=== PATIENT | female | born 1930 | race Caucasian/White ===

== ENCOUNTER 2017-10-05 12:53 | Emergency (ER) | payer MEDICARE ==
[2017-10-05 16:37] LABS: #Eosinphils 0.1 thou/uL (0.0-0.7); #Lymphocytes 2.7 thou/uL (1.20-3.40); #Monocytes 0.7 thou/uL (0.11-0.59); #Neutrophils 5.6 thou/uL (1.40-6.50); %Basophils 0.3 % (0.0-1.0); %Eosinophils 0.7 % (0.0-10.0); %Lymphocytes 29.9 % (21.0-51.0); %Monocytes 7.3 % (0.0-10.0); %Neutrophils 61.7 % (42.0-75.0); Hemoglobin 14.9 g/dL (12.0-16.0); Mean Corpuscular HGB CONC 33.3 g/dL (32.0-36.0); Mean Corpuscular Volume 99.1 fl (81.0-99.0); Mean Platelet Volume 7.2 fL (7.4-10.4); Platelet Count 278 thou/uL (130-400); RBC Distribution Width 12.9 % (11.5-14.5); Red Blood Cell (RBC) Count 4.52 mill/uL (4.20-5.40); White Blood Cell (WBC) Count 9.1 thou/uL (4.8-10.8)
[2017-10-05 17:03] LABS: ALT (SGPT) 13 U/L (8-55); AST (SGOT) 32 U/L (5-34); Albumin 3.9 g/dL (3.4-4.8); Alkaline Phosphatase 135 U/L (40-150); Anion Gap 19 mmol/L (10-20); BUN (Urea Nitrogen) 13 mg/dL (9.8-20.1); Bilirubin, Total 0.5 mg/dL (0.2-1.2); Calc. Creatinine Clearance 0 mL/min (70-130); Calcium 9.9 mg/dL (7.8-10.44); Carbon Dioxide 19 mmol/L (23-31); Chloride 108 mmol/L (98-107); Estimated GFR-MDRD 65; Globulin 3.9 g/dL (2.4-3.5); Glucose 112 mg/dL (83-110); Potassium 3.9 mmol/L (3.5-5.1); Protein, Total 7.8 g/dL (6.0-8.3); Sodium 142 mmol/L (136-145)
[2017-10-05 18:15] LABS: CKMB 0.7 ng/mL (0-6.6); Troponin I Less than 0.010 ng/mL (< 0.028)
[2017-10-05] MEDS ORDERED: Labetalol HCl 100 MG/20 ML VIAL ONE (19:38)
--- NOTE | 2017-10-05 20:15 | CT ---
NONCONTRAST HEAD CT: HISTORY: Decreased appetite. Dehydration. Weakness. COMPARISON: 08/26/2015 TECHNIQUE: A noncontrast head CT is performed from the skull base to the skull vertex. FINDINGS: No parenchymal hemorrhage. No extraaxial hematoma. No midline shift. The basilar cisterns are hawthorne nt. There is stable malacic change involving the medial left frontal lobe. There is stable configur ation of the ventricular system, which is slightly greater than expected for the overall degree of at rophy. With the exception of the medial left frontal lobe, cortical gao white matter differentiation is pre served. White matter hypodensity due to chronic small vessel ischemic changes are identified. Intact calvarium. Adequate aeration of the sinuses and mastoid air cells. Atherosclerosis of the ca vernous carotid arteries. IMPRESSION: 1. No acute intracranial process. 2. Chronic small vessel ischemic change of the white matter. 3. Malacic change in the medial left frontal lobe. POS: PPP
[2017-10-05 22:26] LABS: Bilirubin Negative (Negative); Blood, Urine Large (Negative); Clarity TURBID (Clear); Glucose, Urine (Dipstick) Negative (Negative); Leukocyte Large (Negative); Nitrite Negative (Negative); Protein, Urine (Dipstick) Trace mg/dL (Neg-Trace); Specific Gravity, Urine 1.009 (1.002-1.036); Urobilinogen 0.2 mg/dL (0.2-1.0)
[2017-10-05 22:28] LABS: Bacteria/HPF 4+ HPF (None Seen); Hyaline Casts/LPF 0-3 HYALINE CAST LPF (0-3 Hyaline)
[2017-10-05 22:29] LABS: Yeast-AUWi Flag 13846.7 (0-25.0)
[2017-10-05 22:37] LABS: RBC/HPF 21-50 HPF (0-3)
[2017-10-05 22:38] LABS: Crystals/HPF 1+ CA OXALATE HPF (Negative)
[2017-10-05] MEDS ORDERED: Amlodipine 5 MG TAB ONE ×2 (23:29→23:32)
[2017-10-05] MEDS ORDERED: Lisinopril 10 MG TAB ONE (23:29)
== END 2017-10-06 00:26 | disposition home or self-care (01) ==
LOC: ERS 12:53
DX: N39.0 Urinary tract infection, site not specified (principal); E86.0 Dehydration; I10 Essential (primary) hypertension; F41.9 Anxiety disorder, unspecified; F32.9 Major depressive disorder, single episode, unspecified
CPT/HCPCS: 36415; 51702; 70450; 80053; 81003; 81015; 82553; 83880; 84484; 85025; 87086; 93005; 94760; 96361; 96374; 96375; J0696

== ENCOUNTER 2017-10-29 14:43 | Inpatient (IN) | payer MEDICARE ==
[2017-10-29 15:41] LABS: #Basophils 0.1 thou/uL (0.0-0.2); #Eosinphils 0.1 thou/uL (0.0-0.7); #Lymphocytes 1.9 thou/uL (1.20-3.40); #Monocytes 1.2 thou/uL (0.11-0.59); #Neutrophils 16.6 thou/uL (1.40-6.50); %Basophils 0.3 % (0.0-1.0); %Eosinophils 0.3 % (0.0-10.0); %Lymphocytes 9.5 % (21.0-51.0); %Monocytes 6.3 % (0.0-10.0); %Neutrophils 83.7 % (42.0-75.0); Hemoglobin 14.5 g/dL (12.0-16.0); Mean Corpuscular HGB CONC 32.6 g/dL (32.0-36.0); Mean Corpuscular Hemoglobin 33.2 pg (27.0-31.0); Mean Platelet Volume 8.9 fL (7.4-10.4); Platelet Count 362 thou/uL (130-400); RBC Distribution Width 13.7 % (11.5-14.5); Red Blood Cell (RBC) Count 4.38 mill/uL (4.20-5.40); White Blood Cell (WBC) Count 19.8 thou/uL (4.8-10.8)
--- NOTE | 2017-10-29 15:47 | RAD ---
RADIOGRAPH CHEST 1 VIEW: HISTORY: 87-year-old female with dysphagia. FINDINGS: The thoracic aorta is tortuous and ectatic. There is no evidence of air space density, pneumothorax, or pulmonary edema. The lateral costophrenic angles are sharp. IMPRESSION: 1) No acute pulmonary findings. 2) Ectasia of thoracic aorta. yoly POS: JOSE
[2017-10-29 15:49] LABS: ALT (SGPT) 18 U/L (8-55); AST (SGOT) 31 U/L (5-34); Albumin 3.8 g/dL (3.4-4.8); Alkaline Phosphatase 118 U/L (40-150); Anion Gap 17 mmol/L (10-20); BUN (Urea Nitrogen) 60 mg/dL (9.8-20.1); Bilirubin, Total 0.5 mg/dL (0.2-1.2); Calc. Creatinine Clearance 0 mL/min (70-130); Calcium 9.9 mg/dL (7.8-10.44); Carbon Dioxide 24 mmol/L (23-31); Chloride 118 mmol/L (98-107); Estimated GFR-MDRD 39; Globulin 3.1 g/dL (2.4-3.5); Glucose 159 mg/dL (83-110); Potassium 3.5 mmol/L (3.5-5.1); Protein, Total 6.9 g/dL (6.0-8.3); Sodium 155 mmol/L (136-145)
[2017-10-29 15:53] LABS: CKMB 2.6 ng/mL (0-6.6); Troponin I 0.066 ng/mL (< 0.028)
[2017-10-29 15:56] LABS: Bilirubin Negative (Negative); Blood, Urine Negative (Negative); Clarity CLOUDY (Clear); Glucose, Urine (Dipstick) Negative (Negative); Leukocyte Negative (Negative); Nitrite Negative (Negative); Protein, Urine (Dipstick) Trace mg/dL (Neg-Trace); Specific Gravity, Urine 1.021 (1.002-1.036); Urobilinogen 0.2 mg/dL (0.2-1.0); pH, Urine 5.5 (5.0-9.0)
[2017-10-29] MEDS ORDERED: Dextrose 5 % And 0.9 % NaCl 1,000 ML IV SCH (19:15)
[2017-10-29] MEDS ORDERED: cefTRIAXone\\ROCEPHIN 2 GM in Sodium Chloride 0.9% 100 ML IVPB SCH (19:15)
[2017-10-29 20:16] LABS: CKMB 2.1 ng/mL (0-6.6); Troponin I 0.055 ng/mL (< 0.028)
[2017-10-29] MEDS: Dextrose 5 %-0.45 % NaCl 1,000 ML IV SCH (20:17)
[2017-10-29] MEDS: Diltiazem HCl 125 MG, Admixture Fee 1 EACH in Sodium Chloride 0.9% 100 ML IVPB SCH (20:18)
[2017-10-29 22:56] LABS: CKMB 1.6 ng/mL (0-6.6); Troponin I 0.054 ng/mL (< 0.028)
[2017-10-30 05:25] LABS: #Eosinphils 0.1 thou/uL (0.0-0.7); #Lymphocytes 1.7 thou/uL (1.20-3.40); #Monocytes 0.6 thou/uL (0.11-0.59); #Neutrophils 10.4 thou/uL (1.40-6.50); %Basophils 0.3 % (0.0-1.0); %Eosinophils 0.4 % (0.0-10.0); %Lymphocytes 13.4 % (21.0-51.0); %Monocytes 4.9 % (0.0-10.0); Hemoglobin 12.7 g/dL (12.0-16.0); Mean Corpuscular Hemoglobin 32.8 pg (27.0-31.0); Mean Platelet Volume 8.7 fL (7.4-10.4); Platelet Count 228 thou/uL (130-400); RBC Distribution Width 13.7 % (11.5-14.5); Red Blood Cell (RBC) Count 3.86 mill/uL (4.20-5.40); White Blood Cell (WBC) Count 12.9 thou/uL (4.8-10.8)
[2017-10-30 05:52] LABS: Anion Gap 14 mmol/L (10-20); BUN (Urea Nitrogen) 46 mg/dL (9.8-20.1); Calc. Creatinine Clearance 39 mL/min (70-130); Calcium 8.8 mg/dL (7.8-10.44); Carbon Dioxide 24 mmol/L (23-31); Chloride 121 mmol/L (98-107); Estimated GFR-MDRD 66; Glucose 122 mg/dL (83-110); Sodium 156 mmol/L (136-145)
[2017-10-30 05:57] LABS: Potassium 2.7 mmol/L (3.5-5.1)
[2017-10-30] MEDS: Dextrose 5 %-0.45 % NaCl 1,000 ML IV SCH (06:11)
[2017-10-30] MEDS ORDERED: cefTRIAXone\\ROCEPHIN 2 GM in Sodium Chloride 0.9% 100 ML IVPB SCH (09:00)
[2017-10-30] MEDS: Potassium Chloride 20 MEQ in Premix Bag 1 BAG IVPB SCH ×2 (10:14→12:27)
[2017-10-30] MEDS: Dextrose 5% in Water 1,000 ML IV SCH (14:16)
[2017-10-30] MEDS: hydrALAZINE 20 MG/ML VIAL SLOW IVP PRN (18:54)
[2017-10-30] MEDS ORDERED: Potassium Chloride 20 MEQ in Sodium Chloride 0.9% 250 ML 250 ML IVPB SCH (19:00)
--- NOTE | 2017-10-31 01:02 | HP ---
DATE OF ADMISSION: 10/29/2017 CHIEF COMPLAINT: The patient is not eating well, losing weight, and has swallowing problems and for possible PEG tube placement. HISTORY OF PRESENT ILLNESS: Ms. Ortega is an 87-year-old female with past medical histor y of dementia, hypertension, anxiety disorder, has not been eating for the last few weeks to few candis hs. The patient has been losing weight steadily. She drinks Boost sometimes, but not enough. The p atient was seen in the office and they had discussed various options with the guardian of the patient . She indicated that she wants her to eat, if she cannot eat, she wants her to continue with some ki nd of feeding, so that is the reason she brought the patient here for possible PEG tube placement. I n the ER, the patient was evaluated and found to be very lethargic and very tachycardic. The patient was found to be in atrial fibrillation with rapid ventricular rate, new onset. She received Cardize m 1 dose, also started on IV fluids because of her severe dehydration. She was found to be in acute kidney injury with elevated BUN and creatinine. She received a bolus of 1 liter and the patient was also given Cardizem as mentioned before. The patient is being admitted for further evaluation and kurt headley. PAST MEDICAL HISTORY: 1. Dementia. 2. Hypertension. 3. Hyperlipidemia. 4. Unstable gait. 5. Anxiety disorder. PAST SURGICAL HISTORY: Nothing significant. CURRENT MEDICATIONS: Her home medications include lisinopril 20 mg daily, Xanax 0.25 at bedtime p.r. n., Norvasc 5 mg daily, clonidine p.r.n., multivitamin daily, vitamin D daily, Zoloft 150 daily, clon idine 0.1 mg b.i.d., Seroquel 25 mg b.i.d., Tylenol p.r.n., tramadol p.r.n. ALLERGIES: NKDA. FAMILY HISTORY: Nothing of interest. SOCIAL HISTORY: She lives at home, has a 24-hour caregiver. No history of smoking. No history of a lcohol use. REVIEW OF SYSTEMS: Cardiovascular: No chest pain. No shortness of breath. Respiratory: No fever or cough. Gastrointestinal: Has anorexia, not eating well, and weight loss. Central Nervous System : No headache. No dizziness. PHYSICAL EXAMINATION: GENERAL: The patient is not very alert, not oriented. VITAL SIGNS: Temperature 98, pulse 101, respirations 20, blood pressure 150/70. HEENT: Head is normocephalic, atraumatic. Pupils are equal and reactive. Nasopharynx is pale and d ry. Hard and soft palate, no lesions. SKIN: Skin turgor decreased. NECK: Supple. No JVD. LUNGS: Breath sounds diminished bilaterally. No rales, no rhonchi. HEART: S1, S2 regular. ABDOMEN: Soft. No distention, no tenderness. No organomegaly. Normal bowel sounds. RECTAL: Deferred. CENTRAL NERVOUS SYSTEM: The patient is lethargic, responds to painful stimuli. No focal neurologica l deficit. LABORATORY DATA: CBC shows WBC 19.8, hemoglobin 14, hematocrit 44, platelets 362. Metabolic panel, sodium 155, potassium 3.5, chloride 118, CO2 of 24, BUN 60, creatinine 1.28, glucose 159. CK-MB is 2 .6. Troponin I is 0.066. Urinalysis showing wbc. IMAGING: EKG shows atrial fibrillation with rapid ventricular rate with heart rate of 126, no acute ST-T changes seen. Chest x-ray, negative. ASSESSMENT: 1. New-onset atrial fibrillation with rapid ventricular rate. 2. Acute kidney injury. 3. Severe hypernatremia. 4. Severe dehydration. 5. Anorexia and weight loss. 6. Rule out urinary tract infection. 7. Severe dementia. 8. Hypertension. PLAN: 1. Vital signs q.4 hours. 2. Activity, as tolerated. 3. Allergies: NKDA. 4. IV fluids, D5 half at 100 mL per hour. 5. Intake and output. 6. We will hold her p.o. medications. 7. Patient is FULL CODE.
[2017-10-31] MEDS: Dextrose 5% in Water 1,000 ML IV SCH ×3 (01:51→21:35)
[2017-10-31 06:11] LABS: #Basophils 0.1 thou/uL (0.0-0.2); #Eosinphils 0.2 thou/uL (0.0-0.7); #Lymphocytes 1.8 thou/uL (1.20-3.40); #Monocytes 0.6 thou/uL (0.11-0.59); #Neutrophils 7.4 thou/uL (1.40-6.50); %Basophils 0.6 % (0.0-1.0); %Eosinophils 1.9 % (0.0-10.0); %Lymphocytes 17.6 % (21.0-51.0); %Monocytes 5.7 % (0.0-10.0); %Neutrophils 74.2 % (42.0-75.0); Hemoglobin 12.7 g/dL (12.0-16.0); Mean Corpuscular HGB CONC 32.7 g/dL (32.0-36.0); Mean Corpuscular Hemoglobin 33.2 pg (27.0-31.0); Mean Platelet Volume 8.8 fL (7.4-10.4); Platelet Count 216 thou/uL (130-400); RBC Distribution Width 13.4 % (11.5-14.5); Red Blood Cell (RBC) Count 3.84 mill/uL (4.20-5.40)
[2017-10-31 06:26] LABS: Anion Gap 10 mmol/L (10-20); BUN (Urea Nitrogen) 18 mg/dL (9.8-20.1); Calc. Creatinine Clearance 49 mL/min (70-130); Calcium 8.7 mg/dL (7.8-10.44); Carbon Dioxide 24 mmol/L (23-31); Chloride 118 mmol/L (98-107); Estimated GFR-MDRD 86; Glucose 116 mg/dL (83-110); Sodium 149 mmol/L (136-145)
[2017-10-31] MEDS: hydrALAZINE 20 MG/ML VIAL SLOW IVP PRN (11:07)
[2017-10-31] MEDS: Potassium Chloride 20 MEQ in Sodium Chloride 0.9% 250 ML 250 ML IVPB SCH ×2 (13:12→15:38)
--- NOTE | 2017-10-31 14:08 | CON ---
DATE OF CONSULTATION: 10/31/2017 REQUESTING PHYSICIAN: Dr. Clark. REASON FOR CONSULTATION: PEG tube placement. HISTORY OF PRESENT ILLNESS: Ms. Ortega is an 87-year-old woman with no apparent history of gastrointestinal illness, but she does have significant dementia, which has been worsening. Her c aregiver and guardian, Aarti, was able to provide history for me. Aarti states that over the past few y ears, the patient has had a progressive decline in mental status, but also more recently progressive decline in oral intake. She has been noted to have oropharyngeal dysphagia with significant choking and gagging during some meals. She has slowly lost a bit of weight as well. Because of this general ized decline, the patient was brought in for consideration of PEG tube placement, which her guardian has thought about for a long time and has finally decided to proceed with if possible. In the ER, th e patient was lethargic and tachycardic and found to be in atrial fibrillation with rapid ventricular rate. Her rates have been brought under control overnight with IV diltiazem. This morning, she rem ains confused, but not complaining of any pain. She was evaluated by speech pathologist earlier toda y and was found to be 80%-100% impaired with her swallowing function. We are consulted for considera tion of PEG tube placement. The patient has not had any abdominal surgeries that we can tell. She i s not on any anticoagulation. REVIEW OF SYSTEMS: Unable to obtain from the patient due to significant dementia. PAST MEDICAL HISTORY: Dementia, hypertension, hyperlipidemia, unsteady gait, anxiety disorder. PAST SURGICAL HISTORY: None. ALLERGIES: No known drug allergies. MEDICATIONS: Lisinopril, Xanax, Norvasc, multivitamin, vitamin D, Zoloft, clonidine, Seroquel, Tylen ol, tramadol. FAMILY HISTORY: Noncontributory. SOCIAL HISTORY: The patient lives at home and has 24-hour caregivers. No history of smoking or alco hol use. PHYSICAL EXAMINATION: VITAL SIGNS: Temperature 98.8, pulse 100, blood pressure 168/74, 98% oxygen saturation on room air. GENERAL: Elderly, frail, demented 87-year-old woman, lying in bed comfortably in no distre ss. SKIN: She is a bit pale, no jaundice, no rashes were palpable. EYES: No scleral icterus. Extraocular movements intact. ENT: Mucous membranes moist, no oral lesions. LYMPH: No submandibular or supraclavicular lymphadenopathy. THYROID: Nontender to palpation. HEART: Regular rate and rhythm. LUNGS: Clear to auscultation bilaterally. ABDOMEN: Flat, nontender to palpation. No surgical scars in left upper quadrant. EXTREMITIES: No peripheral edema. VESSELS: Radial pulses 2+ bilaterally. NEUROLOGICAL: She is unable to follow commands. Cranial nerves appear intact. LABORATORY STUDIES: Hemoglobin 12.7, WBC 10.0, platelets 216,000. Sodium 149, potassium 3.0. BUN 1 8, creatinine 0.65. Urinalysis negative. ASSESSMENT AND PLAN: 1. Oropharyngeal dysphagia. 2. Dementia. It does appear from the speech pathologist report as well as her clinical course that the patient has developed progressive oropharyngeal dysphagia and is at increasing aspiration risk and risk for maln utrition. I agree that PEG placement is a reasonable consideration. This is what the patient's guar ken desires. I see no contraindications to this. The patient has no history of abdominal surgeries . I discussed PEG placement and the risks and potential benefits in detail with the patient's guardi an and she desires for us to proceed. We will plan for PEG placement tomorrow. Please hold any anti coagulation. In the meantime, have her n.p.o. after midnight. Further recommendations following PEG placement.
[2017-10-31] MEDS: Diltiazem HCl 125 MG, Admixture Fee 1 EACH in Sodium Chloride 0.9% 100 ML IVPB SCH (21:39)
--- NOTE | 2017-10-31 22:36 | CON ---
DATE OF CONSULTATION: 10/31/2017 REASON FOR CONSULTATION: Atrial fibrillation. HISTORY OF PRESENT ILLNESS: Ms. Ortega is a very pleasant 87-year-old woman with severe dementia w ith atrial fibrillation. She was brought to the hospital with dehydration, not eating and failure to thrive, hypernatremia. It was noted that she is in atrial fibrillation. The patient is unable to g tatiana any history due to her dementia. PAST MEDICAL HISTORY: She has history of atrial fibrillation after urinary tract infection a couple years ago. She has a history of recurrent urinary tract infections. The patient is going to have a PEG tube placement. PAST MEDICAL HISTORY: 1. Dementia. 2. Hypertension. 3. Hyperlipidemia. PAST SURGICAL HISTORY: None significant. HOME MEDICATION: 1. Lisinopril. 2. Norvasc. 3. Clonidine. 4. Zoloft. ALLERGIES: None known. SOCIAL HISTORY: No alcohol or tobacco. She has a 24-hour caregiver. She has a family member, who s he describes herself as a distant family member who has been instrumental in her care apparently. REVIEW OF SYSTEMS: Not obtainable due to dementia. PHYSICAL EXAMINATION: GENERAL: A pleasant elderly woman. She is alert, but not oriented. VITAL SIGNS: Her blood pressure 150/68, pulse 92 and regular. HEENT: Sclerae nonicteric. Mouth mucous membranes moist. NECK: Supple, no lymphadenopathy. LUNGS: Clear. CARDIAC: Irregularly, irregular. ABDOMEN: Soft, nontender. EXTREMITIES: No clubbing or cyanosis. There is no significant edema. SKIN: Warm and dry. PERTINENT LABORATORY DATA: Hemoglobin is 12.7, potassium is 3.0. Troponin is 0.066. The EKG atrial fibrillation with a rapid rate, previous echocardiogram done in 2014 showed normal lef t ventricular function at that time, ejection fraction 55% to 60%. CONCLUSION: 1. Atrial fibrillation with initially rapid ventricular rate. Now rate controlled on intravenous Ca rdizem. 2. Failure to eat. Plan for PEG tube. She failed a swallowing test that indicates she is high risk for aspiration. PLAN: 1. Continue intravenous Cardizem. 2. We changed Cardizem by the PEG tube when she is able to have placed. 3. Resume antihypertensives when the PEG tube was placed. Also, at this time, would not recommend a nticoagulation. She is going to have a PEG tube at some point, could consider low dose Eliquis 2.5 m g twice a day, although the family member is considering hospice, rate control along may be the best option.
[2017-10-31] MEDS ORDERED: CEFAZOLIN/Water 2 GM/20 ML SYRINGE SLOW IVP SCH (23:45)
[2017-11-01 05:42] LABS: Anion Gap 8 mmol/L (10-20); BUN (Urea Nitrogen) 14 mg/dL (9.8-20.1); Calc. Creatinine Clearance 71 mL/min (70-130); Calcium 8.3 mg/dL (7.8-10.44); Carbon Dioxide 23 mmol/L (23-31); Chloride 113 mmol/L (98-107); Estimated GFR-MDRD Greater than 90; Glucose 94 mg/dL (83-110); Sodium 141 mmol/L (136-145)
[2017-11-01 05:44] LABS: Potassium 2.8 mmol/L (3.5-5.1)
[2017-11-01] MEDS: Dextrose 5% in Water 1,000 ML IV SCH (06:20)
[2017-11-01] MEDS: Potassium Chloride 20 MEQ in Premix Bag 1 BAG IVPB SCH ×2 (07:03→09:47)
[2017-11-01] MEDS ORDERED: CEFAZOLIN/Water 2 GM/20 ML SYRINGE ONE (08:00)
[2017-11-01] MEDS ORDERED: Morphine Sulfate 2 MG/ML SYRINGE SLOW IVP PRN (08:40)
[2017-11-01] MEDS ORDERED: Ondansetron HCl/PF 4 MG/2 ML Vial IVP PRN (08:40)
[2017-11-01] MEDS ORDERED: Promethazine HCl 25 MG/ML VIAL SLOW IVP PRN (08:40)
[2017-11-01] MEDS ORDERED: Promethazine HCl 25 MG/ML VIAL IM PRN (08:40)
--- NOTE | 2017-11-01 09:11 | OP ---
GI ENDOSCOPY NOTE SURGEON: Rob Drew M.D. MOLD YARN SUPERVISOR SURGEON: None. PROCEDURE: Esophagogastroduodenoscopy with percutaneous endoscopic gastrostomy placement. INDICATIONS: 1. Oropharyngeal dysphagia. 2. Dementia. MEDICATIONS: 1. See anesthesia record. 2. Ancef 2 grams IV, has periprocedural antibiotic prophylaxis. FINDINGS: After discussion of the risks, benefits and alternatives of the procedure, informed consen t was obtained and verified. Pre-endoscopic cardiopulmonary examination was satisfactory. Timeout w as performed before sedation was achieved. Sedation was achieved with anesthesia assistance in the e ndoscopy unit. The patient was placed in the supine position. A Pentax adult upper endoscope was pl aced into the oropharynx and passed through the cricopharyngeus under direct visualization. The esop hageal mucosa appeared normal throughout with a normal-appearing Z-line. The endoscope was then adva nced into the stomach. Forward and retroflexed views of the entire gastric mucosa were obtained. Th e gastric mucosa appeared normal. The endoscope was then advanced through the pylorus and into the f irst and second portions of the duodenum, which also appeared normal. The endoscope was then withdra wn back into the stomach and a suitable site for PEG placement was located using 1:1 pressure and tra nsillumination methods. The best site appeared to be in the epigastrium in the midline. The site wa s marked and then prepped and draped in a sterile fashion. It was anesthetized with subcutaneous lid ocaine. A 1 cm horizontal incision was then made. The introducer needle and catheter were introduce d transcutaneously into the gastric lumen. A wire was passed through the catheter and grasped with t he snare and then pulled out of the mouth. An 20-Bahraini traction PEG tube was fixed to the wire and then pulled through into place without difficulty in the standard fashion. The endoscope was then pa ssed back into the stomach and the internal bumper was visualized to be in good position. The motorized squad lieutenant al bumper clamp and accessory ports were then affixed to the PEG tube. The external bumper was place d at 5 cm. The upper endoscope was then completely withdrawn and the procedure was complete. The pa tient was allowed to recover. The patient tolerated the procedure well. There were no immediate pos t-procedure complications. IMPRESSION: Successful placement of 20-Bahraini traction PEG tube to the epigastric midline, external bumper at 5 cm. RECOMMENDATIONS: 1. Flush tube regularly. 2. Wait 4 hours before starting tube feeds. 3. Patient already has dietitian recommendations for tube feeds in the chart. 4. I will plan to come by tomorrow to check the PEG site and likely loosen the external bumper. 5. Please call with any questions or concerns.
[2017-11-01] MEDS ORDERED: Fentanyl 100 MCG/2 ML VIAL SLOW IVP SCH (10:15)
[2017-11-01] MEDS ORDERED: Magnesium 2 GM/NS 0.9% 100 ML 2 GM in Premix Bag 1 BAG IVPB SCH (12:15)
--- NOTE | 2017-11-01 14:27 | PDOC.CTH ---
<Fatemeh Lovett - Last Filed: 11/01/17 18:27> Cardiology Progress Note - Subjective The pt seen and examined. No overnight events. She was resting well with Fentanyl for pain. Caregiver at bedside. The pt was talking before the medication administration per Caregiver's report. - Objective Vital Signs Temp Pulse Resp BP Pulse Ox 11/01/17 11:25 98.4 F 89 16 147/86 H 99 11/01/17 07:39 98.5 F 84 18 99 11/01/17 07:31 98.5 F 84 18 143/64 H 99 11/01/17 04:00 98.7 F 89 20 138/69 100 Admit Weight 114 lb 5 oz Weight 115 lb 1.6 oz 10/31/17 11/01/17 11/02/17 06:59 06:59 06:59 Intake Total 2550 1696 90 Balance 2550 1696 90 - Physical Examination General/Neuro: other: (Unknown) Neck: no JVD present Lungs: other: (diminished at bases) Heart: other: (irregular) Abdomen: soft Extremities: other: (no edema) - Telemetry Telemetry Rhythm: Afib 80s - Labs Result Diagrams: 10/31/17 05:57 11/01/17 04:43 Troponin/CKMB CK-MB (CK-2) 1.6 ng/mL (0-6.6) 10/29/17 22:25 Troponin I 0.054 ng/mL (< 0.028) H 10/29/17 22:25 - Assessment/Plan 1. Afib with RVR - Rate well controlled with Diltiazem 5mg/h; Will change Diltiazem to PO when ok to use PEG tube; will start Eliquis 2.5mg BID 2. Dysphagia with PEG tube placement on 11/01/17 3. HTN - stable 4. Dementia - caregiver at [facility] 5. hypokaremia - KCl supplement by PCP today MAR reviewed (Addendum) Diltiazem 120mg via PEG tube was started from tonight. Stop Diltiazem drip now Review of Systems - Review of Systems Constitutional: reports: see HPI EENTM: reports: see HPI Respiratory: reports: see HPI Cardiac (ROS): reports: see HPI ABD/GI: reports: see HPI : reports: see HPI Musculoskeletal: reports: see HPI Skin: reports: see HPI <Rubens Rosales Hugo - Last Filed: 11/02/17 01:30> Cardiology Progress Note - Objective Vital Signs Temp Pulse Resp BP BP Pulse Ox 11/01/17 22:16 140/64 11/01/17 22:10 97.1 F L 84 18 140/64 98 11/01/17 16:00 98.5 F 80 18 145/70 H 99 Admit Weight 114 lb 5 oz Weight 115 lb 1.6 oz 10/31/17 11/01/17 11/02/17 06:59 06:59 06:59 Intake Total 2550 1696 980 Balance 2550 1696 980 - Labs Result Diagrams: 10/31/17 05:57 11/01/17 04:43 Troponin/CKMB CK-MB (CK-2) 1.6 ng/mL (0-6.6) 10/29/17 22:25 Troponin I 0.054 ng/mL (< 0.028) H 10/29/17 22:25 - Assessment/Plan The pt. was seen and eval. by me. I agree with the A/P by the MECHANICAL ENGINEERING COOP.
[2017-11-01] MEDS ORDERED: Lidocaine 1% PF 5 ML VIAL ONE (16:35)
[2017-11-01] MEDS ORDERED: PROPOFOL 200 MG/20 ML VIAL ONE (16:35)
[2017-11-01] MEDS ORDERED: Acetaminophen 650 MG/20.3 ML UDCUP PER TUBE PRN ×2 (17:19→18:16)
[2017-11-01] MEDS: Diltiazem HCl 125 MG, Admixture Fee 1 EACH in Sodium Chloride 0.9% 100 ML IVPB SCH (17:27)
[2017-11-01] MEDS: Lisinopril 20 MG TAB PER TUBE SCH (22:16)
[2017-11-02 05:46] LABS: Anion Gap 10 mmol/L (10-20); BUN (Urea Nitrogen) 15 mg/dL (9.8-20.1); Calc. Creatinine Clearance 49 mL/min (70-130); Calcium 8.7 mg/dL (7.8-10.44); Carbon Dioxide 23 mmol/L (23-31); Chloride 115 mmol/L (98-107); Estimated GFR-MDRD 86; Glucose 100 mg/dL (83-110); Potassium 3.1 mmol/L (3.5-5.1); Sodium 145 mmol/L (136-145)
[2017-11-02] MEDS: Calcium Carbonate + Vit D 1 TAB PER TUBE SCH (11:22)
[2017-11-02] MEDS: Lisinopril 20 MG TAB PER TUBE SCH ×2 (11:23→21:00)
[2017-11-02] MEDS: Multivits W-Minerals Liquid 15mL UDCUP PER TUBE SCH (11:24)
--- NOTE | 2017-11-02 15:26 | PDOC.CTH ---
<Fatemeh Lovett - Last Filed: 11/02/17 15:24> Cardiology Progress Note - Subjective The pt seen and examined. No overnight events. No cardiac complaints. She can open her eyes today; however, she is still drowsy and unable to answer to any question today. - Objective Vital Signs Temp Pulse Resp BP BP Pulse Ox 11/02/17 12:00 97.3 F L 86 18 119/58 L 99 11/02/17 11:23 196/88 H 11/02/17 07:37 97.7 F 81 16 100 11/02/17 07:35 97.7 F 81 16 163/72 H 100 11/02/17 04:00 96.9 F L 80 15 115/61 100 Admit Weight 114 lb 5 oz Weight 114 lb 9 oz 11/01/17 11/02/17 11/03/17 06:59 06:59 06:59 Intake Total 1696 1070 90 Balance 1696 1070 90 - Physical Examination Neck: no JVD present Lungs: other: (diminished at bases) Heart: other: (irregular) Abdomen: soft Extremities: other: (No edema) - Telemetry Telemetry Rhythm: afib 80s - Labs Result Diagrams: 10/31/17 05:57 11/02/17 05:09 Troponin/CKMB CK-MB (CK-2) 1.6 ng/mL (0-6.6) 10/29/17 22:25 Troponin I 0.054 ng/mL (< 0.028) H 10/29/17 22:25 - Assessment/Plan 1. Afib with RVR - Rate well controlled with Diltiazem 120mg via PEG tube; will start Eliquis 2.5mg BID when her condition is stable 2. Dysphagia with PEG tube placement on 11/01/17 3. HTN - stable 4. Dementia - caregiver at [facility] 5. hypokaremia - KCl supplement by PCP today MAR reviewed Review of Systems - Review of Systems Constitutional: reports: see HPI EENTM: reports: see HPI Respiratory: reports: see HPI Cardiac (ROS): reports: see HPI ABD/GI: reports: see HPI <Rubens Rosales - Last Filed: 11/03/17 09:56> Cardiology Progress Note - Objective Vital Signs Temp Pulse Resp BP BP Pulse Ox 11/03/17 08:27 141/72 H 11/03/17 07:50 97.7 F 86 20 141/72 H 99 11/03/17 03:52 97.4 F L 99 16 140/65 90 L Admit Weight 114 lb 5 oz Weight 120 lb 11/02/17 11/03/17 11/04/17 06:59 06:59 06:59 Intake Total 1070 1810 Balance 1070 1810 - Labs Result Diagrams: 10/31/17 05:57 11/03/17 04:10 Troponin/CKMB CK-MB (CK-2) 1.6 ng/mL (0-6.6) 10/29/17 22:25 Troponin I 0.054 ng/mL (< 0.028) H 10/29/17 22:25 - Assessment/Plan Pt. seen and eval. by me. I agree with the a/P by the LEATHER PIECE INSPECTOR.Chest clear. ireg/ irreg.
[2017-11-03 05:06] LABS: Anion Gap 10 mmol/L (10-20); BUN (Urea Nitrogen) 18 mg/dL (9.8-20.1); Calc. Creatinine Clearance 48 mL/min (70-130); Calcium 8.7 mg/dL (7.8-10.44); Carbon Dioxide 24 mmol/L (23-31); Chloride 115 mmol/L (98-107); Estimated GFR-MDRD 83; Glucose 122 mg/dL (83-110); Potassium 4.6 mmol/L (3.5-5.1); Sodium 144 mmol/L (136-145)
[2017-11-03] MEDS: Calcium Carbonate + Vit D 1 TAB PER TUBE SCH (08:26)
[2017-11-03] MEDS: Lisinopril 20 MG TAB PER TUBE SCH ×2 (08:27→21:15)
[2017-11-03] MEDS: Multivits W-Minerals Liquid 15mL UDCUP PER TUBE SCH (08:28)
[2017-11-03 12:20] VITALS: BMI 21.2
--- NOTE | 2017-11-03 12:53 | PQF ---
CLINICAL DOCUMENTATION IMPROVEMENT CLARIFICATION FORM: ICD-10 Updated PLEASE DO AN ADDENDUM TO THE PROGRESS NOTE WITH ANY DOCUMENTATION UPDATES OR ADDITIONS AND CARRY THROUGH TO DC SUMMARY. THANK YOU. Date: 11/03 ATTN: DR. Shashi CHRISTENSEN Please exercise your independent, professional judgment in responding to the clarification form. Clinical indicators are provided on the bottom of this form for your review Please check appropriate box(s): [y ] Protein Calorie Malnutrition: [ ] Mild [ y] Moderate [ ] Severe [ ] Other Malnutrition (please specify) __ [ ] Underweight without malnutrition [ ] Cachexia [ ] Other diagnosis [ ] Unable to determine CLINICAL INDICATORS - SIGNS / SYMPTOMS / LABS BMI: 20.4 PHYSICIAN H&P DOCUMENTATION 10/29: HX OF PRESENT ILLNESS: ...PAST MEDICAL HX OF DEMENTIA, ANXIETY DO & HAS NOT BEEN EATING FOR THE LAST FEW WEEKS TO FEW MONTHS. THE PATIENT HAS BEEN LOSING WEIGHT STEADILY. ASSESSMENT: 5. ANOREXIA & WEIGHT LOSS PHYSICIAN PN 10/30: PROTEIN CALORIE MALNUTRITION PHYSICIAN PN 10/31 & 27: ANOREXIA & WEIGHT LOSS RISK FACTORS: SEVERE DEMENTIA WEIGHT LOSS ANOREXIA TREATMENT: NUTRITIONAL ASSESSMENT SPEECH CONSULT (NOT SAFE FOR ANY PO INTAKE) GI CONSULT PEG TUBE PLACEMENT THANK YOU! Kelley (This form is maintained as a part of the permanent medical record) 2014 [employer]. All Rights Reserved Kelley Keyes RN, BSN rosa [email or web address] Office: [phone] [facility]
--- NOTE | 2017-11-03 13:03 | PQF ---
CLINICAL DOCUMENTATION IMPROVEMENT CLARIFICATION FORM: ICD-10 Updated PLEASE DO AN ADDENDUM TO THE PROGRESS NOTE WITH ANY DOCUMENTATION UPDATES OR ADDITIONS AND CARRY THROUGH TO DC SUMMARY. THANK YOU. DATE: 11/03 ATTN: DR. Shashi CHRISTENSEN Please exercise your independent, professional judgment in responding to the clarification form. Clinical indicators are provided on the bottom of this form for your review Please check appropriate box(s) to clarify if the following diagnosis has been ruled in our ruled out: R/O SEPSIS [ ] Ruled in diagnosis [ ] Continue to treat [ ] Resolved [ y ] Ruled out diagnosis [ ] Other diagnosis [ ] Unable to determine For continuity of documentation, please document condition throughout progress notes and discharge summary. Thank You. CLINICAL INDICATORS - SIGNS / SYMPTOMS / LABS PHYSICIAN H&P DOCUMENTATION 10/29: UTI R/O SEPSIS METABOLIC ENCEPHALOPATHY SATNAM NO FURTHER DOCUMENTATION OF SEPSIS TO DATE ER PRESENTATION 10/29: T 99.3 HR: 118 RR: 24 WBC: 19.8 RISK FACTORS: METABOLIC ENCEPHALOPATHY UTI ADVANCED AGE ACUTE KIDNEY INJURY TREATMENTS: IV ROCEPHIN (10/28) IVF (D5 W/.45 NS 10/28) THANK YOU! Kelley (This form is maintained as a part of the permanent medical record) 2014 [employer] All Rights Reserved Kelley Keyes RN, BSN rosa [email or web address] Office: [phone] [facility]
[2017-11-04] MEDS: Lisinopril 20 MG TAB PER TUBE SCH ×2 (08:34→21:10)
[2017-11-04] MEDS: Calcium Carbonate + Vit D 1 TAB PER TUBE SCH (08:36)
[2017-11-04] MEDS: Multivits W-Minerals Liquid 15mL UDCUP PER TUBE SCH (09:46)
[2017-11-05] MEDS: Calcium Carbonate + Vit D 1 TAB PER TUBE SCH (08:24)
[2017-11-05] MEDS: Lisinopril 20 MG TAB PER TUBE SCH (08:25)
[2017-11-05] MEDS: Multivits W-Minerals Liquid 15mL UDCUP PER TUBE SCH (08:29)
[2017-11-05 11:55] VITALS: BP 160/86; TEMP 98.3
--- NOTE | 2017-11-06 15:03 | DIS ---
DATE OF ADMISSION: 10/29/2017 DATE OF DISCHARGE: 11/05/2017 ADMITTING DIAGNOSES: 1. New onset atrial fibrillation with rapid ventricular rate. 2. Acute kidney injury. 3. Severe hyponatremia. 4. Severe dehydration. 5. Anorexia and weight loss. 6. Rule out urinary tract infection. 7. Severe dementia. 8. Hypertension. FINAL DIAGNOSES: 1. New onset atrial fibrillation with rapid ventricular rate, improved. 2. Acute kidney injury, corrected. 3. Severe hyponatremia corrected. 4. Severe dehydration, improved. 5. Protein-calorie malnutrition, severe, status post PEG tube placement. 6. Severe dementia. 7. Hypertension. BRIEF SUMMARY OF HOSPITAL COURSE: Ms. Ortega is an 87-year-old female with past medical history of dementia, hypertension, who was brought in because of not eating well, losing weight and h as problem with swallowing, probably need PEG tube placement, but patient was found to be in atrial f ibrillation with rapid ventricular rate. She was started on Cardizem infusion and a cardiology consu lt was done. Patient was seen by Dr. Brown and continued with the intravenous Cardizem, and change to Cardizem once he had a PEG tube. Once the PEG tube in place it can be changed to via PEG tube. A GI consult was done in view of her protein-calorie malnutrition. The patient was seen by Dr. Rob Drew. He suggested PEG tube placement. At that time, family agreed and consent was obtained. Christine martinez, she was given fluid therapy as well as antibiotics. Patient BUN which was 60 came down to 18 w ith fluids. Creatinine also came down from 1.28 to 0.6. Initially WBC was high at 19,000, but came to 10,000. Patient had a PEG tube placement and medications given via PEG tube and in view of improv ement, patient is being discharged. By the time of discharge, she was stable, her vital signs were s table. She was discharged back home. She will be on bolus tube feeding. At the time of discharge, he was stable. His vital signs were stable. Lungs clear. Heart sounds regular. Abdomen is soft. Bowel sounds present. DISCHARGE MEDICATIONS: Include Tylenol 1000 mg q.i.d. p.r.n., lisinopril 20 mg b.i.d., Zoloft 150 mg daily, vitamin D daily, multivitamin daily, Seroquel 25 mg at bedtime, tramadol p.r.n., and also on Cardizem 120 b.i.d. FOLLOWUP: The patient will be followed up in the office in 2 weeks.
--- NOTE | 2017-11-15 17:35 | EKG ---
Test Reason : Blood Pressure : / mmHG Vent. Rate : 126 BPM Atrial Rate : 138 BPM P-R Int : 000 ms QRS Dur : 068 ms QT Int : 318 ms P-R-T Axes : 000 063 223 degrees QTc Int : 460 ms Atrial fibrillation with rapid ventricular response ST depression, consider subendocardial injury Nonspecific T wave abnormality Abnormal ECG Confirmed by NATALIE GAMEZ ([id number]), commissioning editor CHRISTOPHER BERTRAND ([id number]) on 11/15/2017 5:34:00 PM Referred By: Confirmed By:NATALIE GAMEZ
== END 2017-11-05 12:20 | disposition home or self-care (01) | DRG 683 ==
LOC: ERS 14:43 → 2NO 19:14 → T4-A 11-03 14:05
PROVIDERS: ADMIT Internal Medicine; ATTEND Internal Medicine
PROC: 0DH63UZ Insertion of Feeding Device into Stomach, Percutaneous Approach (ICD-10-PCS; principal; 2017-11-01)
PROC: 3E0G76Z Introduction of Nutritional Substance into Upper GI, Via Natural or Artificial Opening (ICD-10-PCS; 2017-11-01)
PROC: 0DJ08ZZ Inspection of Upper Intestinal Tract, Via Natural or Artificial Opening Endoscopic (ICD-10-PCS; 2017-11-01)
DX: N17.9 Acute kidney failure, unspecified (principal); E87.0 Hyperosmolality and hypernatremia; L89.152 Pressure ulcer of sacral region, stage 2; E44.0 Moderate protein-calorie malnutrition; E86.0 Dehydration; I48.91 Unspecified atrial fibrillation; R13.12 Dysphagia, oropharyngeal phase; F03.90 Unspecified dementia, unspecified severity, without behavioral disturbance, psychotic disturbance, mood disturbance, and anxiety; E78.5 Hyperlipidemia, unspecified; F41.9 Anxiety disorder, unspecified; I10 Essential (primary) hypertension; Z68.21 Body mass index [BMI] 21.0-21.9, adult; R62.7 Adult failure to thrive; I25.10 Atherosclerotic heart disease of native coronary artery without angina pectoris; Z85.828 Personal history of other malignant neoplasm of skin; Z99.3 Dependence on wheelchair
CPT/HCPCS: 36415; 36416; 51701; 71045; 80048; 80053; 81003; 82553; 83605; 83735; 84484; 85025; 87086; 93005; 96374; 96376; A4216; A4353; G8996-GN-CN; G8997-GN-CM; J0360; J0696; J2001; J2704; J3010; J3475; J3480; J7050